=== PATIENT | female | born 1965 | race Caucasian/White ===

== ENCOUNTER 2017-06-03 14:32 | Emergency (ER) | payer MEDICARE ==
--- NOTE | 2017-06-03 16:33 | ER Document Report ---
ED Medical Screen (RME) - General Chief Complaint: Flu Symptoms Stated Complaint: COUGHING Time Seen by Provider: 06/03/17 16:30 Notes: Patient states for several months she has been short of breath that is worse when she lies flat. She has had a cough productive of green sputum. She states she had an x-ray in January of this year that showed lung nodules. She was referred to a redrawer. No further imaging of her lungs is been done. She has been placed on some inhaled steroids with no relief. She also states that she was recently diagnosed with atrial fibrillation. She states she does not know if she is on a blood thinner. She states the redrawer has not given her a diagnosis yet. She says she feels very weak and tired. No history of DVTs or PEs per patient TRAVEL OUTSIDE OF THE [place] IN LAST 30 DAYS: No - Related Data Allergies/Adverse Reactions: ibuprofen [From Advil] Allergy (Verified 06/03/17 15:25) naproxen [From Aleve] Allergy (Verified 06/03/17 15:25) strawberry Allergy (Verified 06/03/17 15:25) topiramate [From Topamax] Allergy (Verified 06/03/17 15:25) Past Medical History - Social History Chew tobacco use (# tins/day): No Frequency of alcohol use: None Drug Abuse: None - Past Medical History Cardiac Medical History: Reports: Hx Atrial Fibrillation Renal/ Medical History: Denies: Hx Peritoneal Dialysis Surgical Hx: Negative - Immunizations Hx Diphtheria, Pertussis, Tetanus Vaccination: Yes History of Influenza Vaccine for 05/2017 - 10/2017 Season: No Physical Exam - Vital signs Vitals: Temp Pulse Resp BP Pulse Ox 98.8 F 82 20 147/111 H 97 06/03/17 15:20 06/03/17 15:20 06/03/17 15:20 06/03/17 15:20 06/03/17 15:20 Course - Vital Signs Vital signs: Temp Pulse Resp BP Pulse Ox 98.2 F 68 20 119/83 98 06/03/17 15:21 06/03/17 15:21 06/03/17 15:21 06/03/17 15:21 06/03/17 15:21
--- NOTE | 2017-06-03 17:01 | RADIOLOGY REPORT (SQ) ---
EXAM DESCRIPTION: CHEST PA/LAT COMPLETED DATE/TIME: 06/03/2017 4:54 pm REASON FOR STUDY: sob COMPARISON: None. EXAM PARAMETERS: NUMBER OF VIEWS: two views TECHNIQUE: Digital Frontal and Lateral radiographic views of the chest acquired. RADIATION DOSE: NA LIMITATIONS: none FINDINGS: LUNGS AND PLEURA: No opacities, masses or pneumothorax. No pleural effusion. MEDIASTINUM AND HILAR STRUCTURES: No masses or contour abnormalities. HEART AND VASCULAR STRUCTURES: Heart normal size. No evidence for failure. BONES: No acute findings. HARDWARE: None in the chest. OTHER: No other significant finding. IMPRESSION: NO SIGNIFICANT RADIOGRAPHIC FINDING IN THE CHEST. TECHNICAL DOCUMENTATION: JOB ID: [id number] [employer]- All Rights Reserved
[2017-06-03 17:46] LABS: ABSOLUTE BASOPHILS # (AUTO) 0.1 10^3/uL (0.0-0.2); ABSOLUTE EOSINOPHILS # (AUTO) 0.2 10^3/uL (0.0-0.6); ABSOLUTE LYMPHOCYTES (AUTO) 2.7 10^3/uL (0.5-4.7); ABSOLUTE NEUT (AUTO) 7.4 10^3/uL (1.7-8.2); BASOPHILS % (AUTO) 0.7 % (0-2); EOSINOPHILS % (AUTO) 1.5 % (0-6); HEMATOCRIT 41.5 % (36.0-47.0); HEMOGLOBIN 14.3 g/dL (12.0-15.5); HGB HCT DIFFERENCE 1.4; LYMPHOCYTES % (AUTO) 23.6 % (13-45); MEAN CORPUSCULAR HEMOGLOBIN 29.2 pg (27.0-33.4); MEAN CORPUSCULAR HGB CONC 34.5 g/dL (32.0-36.0); MEAN CORPUSCULAR VOLUME 85 fl (80-97); MONOCYTES % (AUTO) 9.2 % (3-13); RED BLOOD COUNT 4.89 10^6/uL (3.72-5.28); RED CELL DISTRIBUTION WIDTH 13.5 % (11.5-14.0); WHITE BLOOD COUNT 11.4 10^3/uL (4.0-10.5)
[2017-06-03 18:01] LABS: ALANINE AMINOTRANSFERASE 26 U/L (9-52); ALBUMIN 4.3 g/dL (3.5-5.0); ALKALINE PHOSPHATASE 64 U/L (38-126); ANION GAP 11 (5-19); ASPARTATE AMINO TRANSFERASE 20 U/L (14-36); BILIRUBIN,DIRECT 0.3 mg/dL (0.0-0.4); BILIRUBIN,TOTAL 0.9 mg/dL (0.2-1.3); BLOOD UREA NITROGEN 10 mg/dL (7-20); CALCIUM 9.8 mg/dL (8.4-10.2); CARBON DIOXIDE 25 mmol/L (22-30); CHLORIDE 106 mmol/L (98-107); CREATININE RESULT 0.52 mg/dL (0.52-1.25); GLUCOSE 94 mg/dL (75-110); POTASSIUM 4.1 mmol/L (3.6-5.0); SODIUM 141.9 mmol/L (137-145); TOTAL PROTEIN 7.7 g/dL (6.3-8.2)
--- NOTE | 2017-06-03 18:35 | EKG REPORT ---
SEVERITY:- ABNORMAL ECG - SINUS RHYTHM PROBABLE LEFT ATRIAL ABNORMALITY LEFT ANTERIOR FASCICULAR BLOCK LEFT VENTRICULAR HYPERTROPHY : Confirmed by: Alonso Junior 03-Jun-2017 18:34:35
--- NOTE | 2017-06-03 21:57 | RADIOLOGY REPORT (SQ) ---
EXAM DESCRIPTION: CTA CHEST COMPLETED DATE/TIME: 06/03/2017 9:24 pm REASON FOR STUDY: cp/sob COMPARISON: None. TECHNIQUE: CT scan of the chest performed using helical scanning technique with dynamic intravenous contrast injection. Images reviewed with lung, soft tissue and bone windows. Reconstructed coronal and sagittal MPR images reviewed. Additional 3 dimensional post-processing performed to develop Maximal Intensity Projection images (ND P). All images stored on PACS. All CT scanners at this facility use dose modulation, iterative reconstruction, and/or weight based d osing when appropriate to reduce radiation dose to as low as reasonably achievable (ALARA). [facility]: Dose Right [facility]: CareDose [facility]: Dose Right [facility]: Teradose 4D [facility]: [employer] CONTRAST TYPE AND DOSE: contrast/concentration: Isovue 370.00 mg/ml; Total Contrast Delivered: 79.0 ml; Total Saline Delivered: 45.0 ml Contrast bolus optimized for the pulmonary arteries. Not diagnostic for the aorta. RENAL FUNCTION: GFR > 60. RADIATION DOSE: Up-to-date CT equipment and radiation dose reduction techniques were employed. CTDIv ol: 15.7 mGy. DLP: 451 mGy-cm. . LIMITATIONS: None. FINDINGS: LUNGS AND PLEURA: No masses, infiltrates, pneumothorax. No pleural effusions, calcificati ons. AORTA AND GREAT VESSELS: No aneurysm. Contrast bolus not optimized for the aorta. HEART: No pericardial effusion. No significant coronary artery calcifications. PULMONARY ARTERIES: No emboli visualized in the main pulmonary arteries or the segmental branches. HILAR AND MEDIASTINAL STRUCTURES: No identified masses or abnormal nodes. HARDWARE: None in the chest. UPPER ABDOMEN: No significant findings. Limited exam. THYROID AND OTHER SOFT TISSUES: No masses. No adenopathy. BONES: No acute or significant finding. 3D MIPS: Confirm above findings. OTHER: No other significant finding. IMPRESSION: No emboli visualized in the main pulmonary arteries or the segmental branches. COMMENT: Quality ID # [id number]: Final reports with documentation of one or more dose reduction techniques (e.g., Automated exposure control, adjustment of the mA and/or kV according to patient size, use of iterative reconstruction technique) TECHNICAL DOCUMENTATION: JOB ID: [id number] [employer]- All Rights Reserved
--- NOTE | 2017-06-03 22:16 | ER Document Report ---
ED General - General Chief Complaint: Flu Symptoms Stated Complaint: COUGHING Time Seen by Provider: 06/03/17 16:30 Notes: Patient is a 52-year-old female without previous history of lung disease who presents with complaint of recurrent coughing, difficulty breathing. Patient says that sometimes she coughs so much that she vomits and will pass out. Patient says this is been ongoing since January. She is originally from [place]. She travels back and forth between here [place]. She says that she has been referred to bilingual research interviewer. Senior Information Systems Architect want to do a test on her upper [place] however she said they could not do it because her lungs are too congested. She does not remember the name of the test that there can do on her. She came back down here last week and continues to have the problem with the coughing and her breathing therefore is come to the ER. She originally went to the urgent care but then was referred to the ER. She denies any history of smoking. She denies history of asthma. She has no other complaints at this time. 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 TRAVEL OUTSIDE OF THE [place] IN LAST 30 DAYS: No - Related Data Allergies/Adverse Reactions: ibuprofen [From Advil] Allergy (Verified 06/03/17 15:25) naproxen [From Aleve] Allergy (Verified 06/03/17 15:25) strawberry Allergy (Verified 06/03/17 15:25) topiramate [From Topamax] Allergy (Verified 06/03/17 15:25) Past Medical History - Social History Smoking Status: Never Smoker Chew tobacco use (# tins/day): No Frequency of alcohol use: None Drug Abuse: None Family History: Reviewed & Not Pertinent Patient has suicidal ideation: No Patient has homicidal ideation: No - Past Medical History Cardiac Medical History: Reports: Hx Atrial Fibrillation Renal/ Medical History: Denies: Hx Peritoneal Dialysis Surgical Hx: Negative - Immunizations Hx Diphtheria, Pertussis, Tetanus Vaccination: Yes Review of Systems - Review of Systems Notes: My Normal Review Basic REVIEW OF SYSTEMS: CONSTITUTIONAL : Denies fever, chills, or sweats. Denies recent illness. EENT: Denies eye, ear, throat, or mouth pain or symptoms. Denies nasal or sinus congestion. CARDIOVASCULAR: Denies chest pain. RESPIRATORY: recurrent coughing GASTROINTESTINAL: Denies abdominal pain. Denies nausea, vomiting, or diarrhea. Denies constipation. Last BM: GENITOURINARY: Denies difficulty urinating, painful urination, burning, frequency, or blood in urine. MUSCULOSKELETAL: Denies neck or back pain or joint pain or swelling. SKIN: Denies rash or skin lesions. NEUROLOGICAL: Denies altered mental status or loss of consciousness. Denies headache. Denies weakness or paralysis or loss of use of either side. Denies problems with gait or speech. Denies sensory or motor loss. ALL OTHER SYSTEMS REVIEWED AND NEGATIVE. Physical Exam - Vital signs Vitals: Temp Pulse Resp BP Pulse Ox 98.8 F 82 20 147/111 H 97 06/03/17 15:20 06/03/17 15:20 06/03/17 15:20 06/03/17 15:20 06/03/17 15:20 - Notes Notes: General Appearance: Well nourished, alert, cooperative, no acute distress, no obvious discomfort. Patient has dry cough on exam. She has recurrent coughing. Vitals: reviewed, See vital signs table. Head: no swelling or tenderness to the head Eyes: PERRL, EOMI, Conjuctiva clear Mouth: No decreasd moisture Throat: No tonsillar inflammation, No airway obstruction, No lymphadenopathy Neck: Supple, no neck tenderness Lungs: Few scattered wheezes. No rhonchi. No respiratory distress. No accessory muscle use. Heart: Normal rate, Regular rythm, No murmur, no rub Abdomen: Normal BS, soft, No rigidity, No abdominal tenderness, No guarding, no rebound, no abdominal masses, no organomegaly Extremities: strength 5/5 in all extremities, good pulses in all extremities, no swelling or tenderness in the extremities, no edema. Skin: warm, dry, appropriate color, no rash Neuro: speech clear, oriented x 3, normal affect, responds appropriately to questions. Course - Re-evaluation Re-evalutation: 06/04/17 02:42 I reevaluated the patient multiple times. She continues to have recurrent frequent coughing. Cough is always dry. She has no pain in her chest with the cough. I reviewed again the history of the syncope except is not clear to me. She had a near syncopal episode earlier today where she felt like she is going to pass out but did not fully pass out. She had another one in March and then another one previously approximately 6 months ago. She said the other 2 episodes or full syncopal episodes. She does not remember if she actually felt as if her heart was racing before the symptoms. She said she felt very short of breath before passing out. Patient also has a history of possible atrial fibrillation. She said after waking from surgery she was told that her she was a heart arrhythmia and was given a medication 3 times the sore heart down. She says that she was told that this may have been A. fib but she is not for sure. She is followed by her doctor up in [place]. She is on metoprolol. She does not remember the dose. She is hypertensive now but was also due for her antihypertensive medications. She does not remember the dosages and therefore she will take them as soon as she gets home. While here on the monitor patient has not had any abnormal arrhythmias. I did walk her with a portable monitor. While in the portable monitor her heart rate remained in the 70s and her pulse ox remained 98-100%. She continued to have recurrent cough. She does walk with a cane due to a history of a old foot injury. Her troponin is negative. BNP is negative. CTA of the chest is negative for PE or dissection. I will refer her to her local statistical reporting analyst that she may eventually need an echocardiogram. Is not clear that she has had one in the past. She may also need a Holter monitor. She said she will be in [place] until July before she goes back to [place]. I encourage her to return to ER immediately if she has recurrent episodes of passing out, she has fevers, she has worsening difficulty breathing, or if she feels unwell. Patient says her breathing is worse when she lays flat however she has no fluid on CT scan or x- ray and she has no rales. I encourage her to stay sitting up in a chair sleep in a chair so that she is more comfortable. On exam today she seems to have a bronchitis. She does say that this coughing episodes that she is having are new for the last 2 weeks. I will treat her as acute bronchitis as well. I will place her on azithromycin and give her prednisone. It sounds as if she already has inhalers at home were given to her by her bilingual research interviewer. She agrees with plan and will be discharged home. Dictation of this chart was performed using voice recognition software; therefore, there may be some unintended grammatical errors. - Vital Signs Vital signs: Temp Pulse Resp BP Pulse Ox 98.2 F 68 20 169/120 H 96 06/03/17 15:21 06/03/17 15:21 06/03/17 15:21 06/04/17 02:13 06/04/17 02:13 - Laboratory Result Diagrams: 06/03/17 17:30 06/03/17 17:30 Laboratory results interpreted by me: 06/03/17 06/03/17 17:30 17:30 WBC 11.4 H D-Dimer 0.63 H - EKG Interpretation by Me Additional EKG results interpreted by me: 06/03/17 22:32 EKG is reviewed and interpreted by me. EKG shows normal sinus rhythm with rate of [address] segment elevation or depression. No ischemic type T-wave inversions. OH interval, QRS duration, QTc intervals are within normal range. No old EKG available for comparison. Discharge - Discharge Clinical Impression: Acute bronchitis Qualifiers: Bronchitis organism: unspecified organism Qualified Code(s): J20.9 - Acute bronchitis, unspecified Syncope Qualifiers: Syncope type: unspecified Qualified Code(s): R55 - Syncope and collapse Condition: Good Disposition: HOME, SELF-CARE Additional Instructions: Please follow-up with Dr. Browning, statistical reporting analyst on-call, for close reevaluation for your passing out episodes. Please return to the ER immediately if you have worsening difficulty breathing, fevers, chest pain, or continue to have recurrent episodes of passing out. Please take the prednisone as prescribed. This should help with your cough. I will also place you on an antibiotic. I suspect that you may also have a bronchitis based on my evaluation today. Please continue to follow with your bilingual research interviewer to continue the workup that they were doing on you. Do not hesitate to return to the ER if you are worsening and the medications I have prescribed you are not helping. Prescriptions: Azithromycin 250 mg PO DAILY #4 tablet Prednisone [Deltasone 20 mg Tablet] 3 tab PO DAILY 5 Days tablet Referrals: ROBERT BROWNING MD [ACTIVE STAFF] - Follow up as needed
[2017-06-03] MEDS ORDERED: IPRATROPIUM/ALBUTEROL 0.5-2.5 MG/3 ML AMPUL NEB ONE (22:31)
[2017-06-04] MEDS ORDERED: METHYLPREDNISOLONE INJ 125 MG/2 ML SDV IV ONE (00:21)
[2017-06-04] MEDS ORDERED: LIDOCAINE 2% INJ-PF (20 MG/ML) 10 ML AMPUL NEB ONE (00:21)
[2017-06-04] MEDS: MAGNESIUM SULFATE/D5W 1 GM/100 ML RTUPB IV SCH ×2 (00:30→00:35)
[2017-06-04] MEDS ORDERED: AZITHROMYCIN 250 MG TABLET PO ONE (01:54)
[2017-06-04 02:18] VITALS: BP 169/120
== END 2017-06-04 02:47 | disposition home or self-care (01) ==
LOC: ER 14:32
DX: J20.9 Acute bronchitis, unspecified (principal); R55 Syncope and collapse; R05 Cough; R06.02 Shortness of breath; I10 Essential (primary) hypertension; Z79.899 Other long term (current) drug therapy
CPT/HCPCS: 93005; 94640; 99285; 96375; 96365; 36415; 85025; 80053; 84484; 85379; 83880; 71020; 71275; 93010; A9270 ×2; J2930; J3475; J3490; J7620

== ENCOUNTER 2019-11-13 12:08 | Emergency (ER) | payer MEDICARE ==
[2019-11-13] MEDS ORDERED: ALBUTEROL SULFATE HFA (90 MCG/PUFF) 8 GM MDI (1 MDI/ER DISP) IH ONE (13:05)
--- NOTE | 2019-11-13 13:10 | RADIOLOGY REPORT (SQ) ---
EXAM DESCRIPTION: CHEST SINGLE VIEW COMPLETED DATE/TIME: 11/13/2019 12:59 pm REASON FOR STUDY: cough COMPARISON: 06/03/2017 EXAM PARAMETERS: NUMBER OF VIEWS: One view. TECHNIQUE: Single frontal radiographic view of the chest acquired. RADIATION DOSE: NA LIMITATIONS: None. FINDINGS: LUNGS AND PLEURA: No opacities, masses or pneumothorax. No pleural effusion. MEDIASTINUM AND HILAR STRUCTURES: No masses. Contour normal. HEART AND VASCULAR STRUCTURES: Heart normal in size. Normal vasculature. BONES: No acute findings. HARDWARE: None in the chest. OTHER: No other significant finding. IMPRESSION: NO ACUTE RADIOGRAPHIC FINDING IN THE CHEST. TECHNICAL DOCUMENTATION: JOB ID: [id number] 2010 [employer]- All Rights Reserved Reading location - IP/workstation name: [email or web address]
--- NOTE | 2019-11-13 13:15 | ER Document Report ---
ED General - General Stated Complaint: COUGH,CHEST PAIN Time Seen by Provider: 11/13/19 12:29 Notes: 54-year-old female presents emergency department complaining of intermittent illness. Patient states she traveled down here from [place] at the end of September, was feeling ill but then got better and then worsened again 2 weeks ago. Patient states for the past 1 to 2 weeks she has had right-sided chest pain that feels like something is sitting on her chest, states that it actually improved with NyQuil but hurts worse with a deep breath and occasionally it wo rsens while walking around but not with all exertion. Patient states she has been taking acetaminophen 3 times a day, has had sweats and chills but had a normal temperature, highest she has measured has been 99.6. She has never checked it off of acetaminophen. Patient states that she developed a cough 2 days ago and it worsened last evening, it particularly worsens with laying down. It became productive of clear sputum 2 days ago and yellow sputum today. She does take care of her father who has had similar symptoms for the past week. Patient was sent over from urgent care due to the chest pain and her history of atrial fibrillation. Patient denies any history of AL or stenting. States she stopped taking her metoprolol and her aspirin a year ago because she felt like it was making her hair fall out. TRAVEL OUTSIDE OF THE [place] IN LAST 30 DAYS: No - Related Data Allergies/Adverse Reactions: ibuprofen [From Advil] Allergy (Verified 06/03/17 15:25) naproxen [From Aleve] Allergy (Verified 06/03/17 15:25) strawberry Allergy (Verified 06/03/17 15:25) topiramate [From Topamax] Allergy (Verified 06/03/17 15:25) Past Medical History - General Information source: Patient - Social History Smoking Status: Never Smoker Frequency of alcohol use: Rare Drug Abuse: None Family History: Malignancy - Mother from pancreatic cancer, Other - Father has Parkinson's. denies: CAD, CVA - Past Medical History Cardiac Medical History: Reports: Hx Atrial Fibrillation Renal/ Medical History: Denies: Hx Peritoneal Dialysis - Immunizations Hx Diphtheria, Pertussis, Tetanus Vaccination: Yes Review of Systems - Review of Systems Constitutional: See HPI, Chills, Diaphoresis. denies: Fever EENT: No symptoms reported Cardiovascular: See HPI, Chest pain. denies: Syncope, Dizziness Respiratory: See HPI, Cough, Hurts to breathe, Short of breath, Sputum Gastrointestinal: No symptoms reported -: Yes All other systems reviewed and negative Physical Exam - Notes Notes: GENERAL: Alert, interacts well. No acute distress. Hoarse voice, wet cough. HEAD: Normocephalic, atraumatic EYES: Pupils equal, round and reactive to light, extraocular movements intact. ENT: Oral mucosa moist, tongue midline. NECK: Full range of motion, supple, trachea midline. LUNGS: Wet frequent cough, trace expiratory wheezing, appears uncomfortable when coughing, no distress at rest. HEART: Regular rate and rhythm, no murmurs, gallops, rubs. ABDOMEN: Soft, nontender, nondistended, bowel sounds present in all 4 quadrants. EXTREMITIES: Moves all 4 extremities spontaneously, no edema, radial and dorsalis pedis pulses 2/4 bilaterally. No cyanosis. NEUROLOGICAL: Alert and oriented x3, normal speech, biceps and patellar DTRs 2+ bilaterally. PSYCH: Normal mood, normal affect. SKIN: Warm, Dry, normal turgor, no rashes or lesions noted. Course - Re-evaluation Re-evalutation: 11/13/19 14:49 CBC unremarkable, CMP grossly unremarkable, troponin negative, flu swab is positive for influenza B, chest x-ray is unremarkable. 11/13/19 14:54 EKG has some nonspecific T wave inversions. They are not ischemic. Patient will be discharged home. Symptoms started over 72 hours ago even though they worsened 2 days ago. She is not timeframe for Tamiflu. Patient is agreeable to not having Tamiflu. Discharged home. - Laboratory Result Diagrams: 11/13/19 13:15 11/13/19 13:15 Laboratory results interpreted by me: 11/13/19 13:15 Creatinine 0.46 L AST 37 H ALT 39 H - EKG Interpretation by Me Additional EKG results interpreted by me: 11/13/19 14:55 EKG shows sinus rhythm at a rate of 68, left anterior hemiblock, T wave inversions in 3 and aVF, poor R wave progression, no ST segment elevations or depressions per my interpretation. Discharge - Discharge Clinical Impression: Influenza B Condition: Stable Disposition: HOME, SELF-CARE Additional Instructions: You tested positive for influenza B. Symptoms can include nausea, vomiting, diarrhea, fevers, muscle aches, headache, sore throat, runny nose. If any of your symptoms worsen please return to the emergency department. If you develop a severely stiff neck that you cannot bend please return to the emergency department. I have prescribed multiple medications to help with your symptoms. You may take the Zofran and Phenergan for nausea and vomiting, you may buy Imodium [id number] and used according to the box for diarrhea, you may use the Tessalon Perles as prescribed for cough. Please use ibuprofen (Motrin or Advil) 600-800 mg every 8 hours as needed for pain or fever. You may also use acetaminophen (Tylenol) 1000 mg every 4-6 hours as needed for pain or fever. Please be aware that many medications contain acetaminophen, do not exceed a total of 1000 mg of acetaminophen every 6 hours. You may use the inhaler 2 puffs every 4 hours as needed for cough or shortness of breath. Prescriptions: Promethazine HCl [Phenergan 25 mg Tablet] 25 mg PO Q4HP PRN #10 tablet PRN Reason: Ondansetron [Zofran Odt 4 mg Tablet] 1 - 2 tab PO Q4HP PRN #10 tab.rapdis PRN Reason: Benzonatate [Tessalon Perles 100 mg Capsule] 100 mg PO Q8HP PRN #40 capsule PRN Reason: Prednisone [Deltasone 20 mg Tablet] 40 mg PO DAILY #10 tablet
[2019-11-13 13:34] LABS: ABSOLUTE BASOPHILS # (AUTO) 0.1 10^3/uL (0.0-0.2); ABSOLUTE EOSINOPHILS # (AUTO) 0.2 10^3/uL (0.0-0.6); ABSOLUTE LYMPHOCYTES (AUTO) 2.3 10^3/uL (0.5-4.7); ABSOLUTE MONOCYTES (AUTO) 0.6 10^3/uL (0.1-1.4); ABSOLUTE NEUT (AUTO) 2.6 10^3/uL (1.7-8.2); EOSINOPHILS % (AUTO) 3.7 % (0-6); HEMATOCRIT 40.2 % (36.0-47.0); HEMOGLOBIN 13.9 g/dL (12.0-15.5); LYMPHOCYTES % (AUTO) 40.3 % (13-45); MEAN CORPUSCULAR HEMOGLOBIN 30.1 pg (27.0-33.4); MEAN CORPUSCULAR HGB CONC 34.7 g/dL (32.0-36.0); MEAN CORPUSCULAR VOLUME 87 fl (80-97); MONOCYTES % (AUTO) 10.2 % (3-13); PLATELET COUNT 233 10^3/uL (150-450); RED BLOOD COUNT 4.62 10^6/uL (3.72-5.28); RED CELL DISTRIBUTION WIDTH 13.4 % (11.5-14.0); SEGMENTED NEUTROPHILS % (AUTO) 44.8 % (42-78); TOTAL CELLS COUNTED % (AUTO) 100 %; WHITE BLOOD COUNT 5.8 10^3/uL (4.0-10.5)
[2019-11-13 13:53] LABS: ALKALINE PHOSPHATASE 51 U/L (38-126); ANION GAP 5 (5-19); ASPARTATE AMINO TRANSFERASE 37 U/L (14-36); BILIRUBIN,DIRECT 0.1 mg/dL (0.0-0.4); BILIRUBIN,TOTAL 0.7 mg/dL (0.2-1.3); BLOOD UREA NITROGEN 12 mg/dL (7-20); CALCIUM 9.3 mg/dL (8.4-10.2); CARBON DIOXIDE 30 mmol/L (22-30); CHLORIDE 103 mmol/L (98-107); CREATINE KINASE 65 U/L (30-135); GLUCOSE 93 mg/dL (75-110); POTASSIUM 4.4 mmol/L (3.6-5.0); TOTAL PROTEIN 7.5 g/dL (6.3-8.2)
[2019-11-13 14:02] LABS: TROPONIN I < 0.012 ng/mL
[2019-11-13 14:15] LABS: A TYPE INFLUENZA AG NEGATIVE (NEGATIVE); B INFLUENZA AG POSITIVE (NEGATIVE)
[2019-11-13] MEDS ORDERED: BENZONATATE 100 MG CAPSULE PO ONE (14:56)
[2019-11-13 15:16] VITALS: BP 102/87
--- NOTE | 2019-11-14 10:02 | EKG REPORT ---
SEVERITY:- ABNORMAL ECG - SINUS RHYTHM LEFT AXIS DEVIATION LEFT VENTRICULAR HYPERTROPHY NONSPECIFIC T ABNORMALITIES, INFERIOR LEADS : Confirmed by: Alfredo Gimenez MD 14-Nov-2019 10:02:02
== END 2019-11-13 15:31 | disposition home or self-care (01) ==
LOC: ER 12:08
DX: J10.1 Influenza due to other identified influenza virus with other respiratory manifestations (principal); R05 Cough; R07.9 Chest pain, unspecified; R50.9 Fever, unspecified; Z79.899 Other long term (current) drug therapy; I48.91 Unspecified atrial fibrillation; Z88.8 Allergy status to other drugs, medicaments and biological substances
CPT/HCPCS: 93005; 99284; 36415; 82553; 82550; 85025; 80053; 84484; 87804; 71045; 93010; A9270 ×2; J3490